=== PATIENT | female | born 1945 | race Caucasian/White ===

== ENCOUNTER 2021-12-16 14:32 | Emergency (ER) | payer MEDICARE ==
[~2021-12-16] VITALS: Ht 170.2 cm; Wt 77.3 kg
[2021-12-16 16:01] LABS: URINE APPEARANCE HAZY; URINE BILIRUBIN NEGATIVE (NEGATIVE); URINE BLOOD 50 ery/uL (NEGATIVE); URINE COLOR YELLOW; URINE GLUCOSE NEGATIVE (NEGATIVE); URINE KETONE NEGATIVE (NEGATIVE); URINE LEUKOCYTE ESTERASE 2+ (NEGATIVE); URINE NITRATE POSITIVE (NEGATIVE); URINE PROTEIN(semi-quant) TRACE (NEGATIVE); URINE UROBILINOGEN NORMAL (NORMAL)
[2021-12-16 16:02] LABS: URINE MUCUS PRESENT (NOT PRESENT)
[2021-12-16] MEDS ORDERED: BACTRIM DS TAB1 EACH PO (16:11)
[2021-12-16 16:20] VITALS: BP 129/63
== END 2021-12-16 16:20 | disposition home or self-care (01) ==
LOC: ED 14:32
PROVIDERS: Nurse Practitioner
DX: S02.40CA Maxillary fracture, right side, initial encounter for closed fracture (principal); S01.81XA Laceration without foreign body of other part of head, initial encounter; S01.111A Laceration without foreign body of right eyelid and periocular area, initial encounter; N39.0 Urinary tract infection, site not specified; W01.0XXA Fall on same level from slipping, tripping and stumbling without subsequent striking against object, initial encounter
CPT/HCPCS: 90715